=== PATIENT | male | born 1940 | race Caucasian/White ===

== ENCOUNTER 2016-07-30 01:40 | Emergency (ER) | payer MEDICARE, OTHER ==
[~2016-07-30 01:40] MED LIST: ANTIVERT25 MG PO; ASPIRIN ADULT L81 M1; ASPIRIN81 M1 PO; CALCIUM PO; CETIRIZINE HCL10 MG PO; CLARITIN10 MG PO; COZAAR25 MG; COZAAR50 MG PO; GLUCOPHAGE500 MG PO; KLOR-CON 88 ME1 PO; LORATADINE10 M2; LOSARTAN POTASS1 TA1 PO; LOSARTAN POTASS1 TA4 PO; NAPROSYN500 MG PO; NAPROXEN500 M3 PO; NEURONTIN300 MG PO; NOVOLIN 70100 UNITS/ SUBQ; NOVOLOG MIX 70/10 ML SC; NOVOLOG MIX 70/10 ML SUBQ; PROPRANOLOL10 MG; RANITIDINE 150150 MG PO; SIMVASTATIN20 M1; TOPROL-XL200 MG PO; ZOCOR40 MG PO
--- NOTE | 2016-07-30 02:05 | NUR ---
PATIENT LEFT WITHOUT BEING SEEN BY DR. BLISS. NO FURTHER CARE PROVIDED FOR PATIENT.
== END 2016-07-30 02:05 | disposition left against medical advice (07) ==
LOC: MED 01:40
DX: I10 Essential (primary) hypertension (principal); Z53.21 Procedure and treatment not carried out due to patient leaving prior to being seen by health care provider

== ENCOUNTER 2018-11-25 10:04 | Emergency (ER) | payer OTHER, MEDICAID ==
[~2018-11-25] VITALS: Ht 171.4 cm; Wt 101.2 kg
[~2018-11-25 10:04] MED LIST changes: -ANTIVERT25 MG PO; +ASPI-1718 PO; -ASPIRIN ADULT L81 M1; -ASPIRIN81 M1 PO; +CALC-747 PO; -CALCIUM PO; +CETI10TA71 PO; -CETIRIZINE HCL10 MG PO; -CLARITIN10 MG PO; -COZAAR25 MG; -COZAAR50 MG PO; +GABA300C PO; -GLUCOPHAGE500 MG PO; +HYDR-3298 PO; -KLOR-CON 88 ME1 PO; +LORA10TA19 PO; -LORATADINE10 M2; -LOSARTAN POTASS1 TA1 PO; -LOSARTAN POTASS1 TA4 PO; +MECL-305 PO; +METF500T PO; -NAPROSYN500 MG PO; -NAPROXEN500 M3 PO; -NEURONTIN300 MG PO; +NOV7030 SUBQ; -NOVOLIN 70100 UNITS/ SUBQ; -NOVOLOG MIX 70/10 ML SC; -NOVOLOG MIX 70/10 ML SUBQ; +POTA8TER12 PO; -PROPRANOLOL10 MG; +RANI-451 PO; -RANITIDINE 150150 MG PO; +SIMV40TA1 PO; -SIMVASTATIN20 M1; -TOPROL-XL200 MG PO; -ZOCOR40 MG PO
--- NOTE | 2018-11-25 10:15 | NUR ---
PT AMBULATED TO ER BED 03
[2018-11-25 10:19] VITALS: BP 122/52
--- NOTE | 2018-11-25 10:20 | NUR ---
PT PRESENTS TO EMERGENCY DEPARTMENT WITH C/O RIGHT EYE PAIN. REPORTS HAVING CATARACT SURGERY TO BILATERAL EYES APPROX 6 MONTHS AGO. RIGHT EYE NOTED WATERY AND RED. PT STATES PAIN IS 5/10 AT THIS TIME. VSS. ERMD TO EVALUATE PT.
--- NOTE | 2018-11-25 10:40 | NUR ---
DR DOTY EVALUATING PT AT THIS TIME.
[2018-11-25] MEDS ORDERED: TETRACAINE HCL/PF 0.5% OPTH 4 ML BTL OP ONE ×2 (10:50→14:15)
--- NOTE | 2018-11-25 10:50 | NUR ---
VISUAL ACUITY DONE BY MIRLANDE JARVIS.
--- NOTE | 2018-11-25 11:12 | NUR ---
20G TO RIGHT AC STARTED BY JOANN GREENE. PT TOLERATED PROCEDURE WELL.
[2018-11-25 11:20] LABS: BASOPHILS % (AUTO) 0.5 % (0.0-2.0); EOSINOPHILS # (AUTO) 0.3 K/uL (0-0.4); EOSINOPHILS % (AUTO) 4.1 % (0.0-4.0); HEMATOCRIT 36.7 % (36-52); LYMPHOCYTES # (AUTO) 1.6 K/uL (2.0-11.5); LYMPHOCYTES % (AUTO) 19.3 % (20.5-51.1); MEAN CORPUSCULAR HEMOGLOBIN 28 pg (27-31); MEAN CORPUSCULAR HGB CONC 33 g/dL (33-37); MEAN CORPUSCULAR VOLUME 84.7 fL (80-94); MONOCYTES # (AUTO) 0.7 K/uL (0.8-1.0); NEUTROPHILS # (AUTO) 5.6 K/uL (1.8-7.7); NEUTROPHILS % (AUTO) 68.1 % (42.2-75.2); PLATELET COUNT (AUTO) 227 K/uL (140-450); RED BLOOD CELL COUNT(AUTO) 4.33 MIL/uL (4.20-6.10); RED CELL DISTRIBUTION WIDTH 14.9 % (11.6-13.7); WHITE BLOOD COUNT (AUTO) 8.2 K/uL (4.8-10.8)
[2018-11-25 11:28] LABS: ANION GAP 14.4 (8-16); CARBON DIOXIDE 24.6 mmol/L (21-32); CHLORIDE 102 mmol/L (98-107); CREATININE 1.3 mg/dL (0.7-1.3); GLUCOSE 301 mg/dL (74-106); SODIUM SERUM 137 mmol/L (136-145); UREA NITROGEN, BLOOD 25 mg/dL (7-18)
[2018-11-25] MEDS ORDERED: TETRACAINE HCL/PF 0.5% OPTH 4 ML BTL ONE (11:31)
[2018-11-25] MEDS ORDERED: FLUORESCEIN OPTH STRIP 0.6 MG ONE (11:31)
[2018-11-25 11:34] LABS: TOTAL BILIRUBIN 0.3 mg/dL (0.0-1.0)
[2018-11-25 11:49] LABS: ALBUMIN 3.4 g/dL (3.4-5.0); ASPARTATE AMINOTRANSFERASE 17 U/L (15-37)
--- NOTE | 2018-11-25 12:04 | NUR ---
PT TAKEN TO CT VIA WHEELCHAIR BY DAMON KUNZ
--- NOTE | 2018-11-25 12:30 | NUR ---
tetracaine ophthalmic drops administered to right eye as ordered by .
--- NOTE | 2018-11-25 12:31 | NUR ---
Flourescein eye strip to be administered by Dr. Unger.
--- NOTE | 2018-11-25 13:32 | NUR ---
Patient appears to be resting in bed. Vital Signs within normal limits. Respirations even and unlabored.
--- NOTE | 2018-11-25 14:05 | NUR ---
PROVIDED FOOD TRAY; PT EATING AT THIS TIME.
[2018-11-25 14:46] VITALS: BP 126/62
--- NOTE | 2018-11-25 14:46 | NUR ---
IV removed, catheter intact and site benign. Applied folded 4x4 gauze and tape to stop bleeding.
--- NOTE | 2018-11-25 14:47 | NUR ---
Patient discharged with v/s stable. Written and verbal after care instructions given and explained. Patient alert, oriented and verbalized understanding of instructions. Ambulatory with steady gait. All questions addressed prior to discharge. ID band removed. Patient advised to follow up with PMD.
--- NOTE | 2018-11-25 14:50 | NUR ---
ATTEMPTED TO CONTACT PT OR EMERGENCY CONTACT TO INFORM ABOUT CHANGES TO HIS PRESCRIPTION; NO ANSWER; LEFT VOICEMAIL. AWAITING FOR CALL BACK.
--- NOTE | 2018-11-25 14:51 | NUR ---
NEW PRESCRIPTION IN CHART.
== END 2018-11-25 14:47 | disposition home or self-care (01) ==
LOC: MED 10:04
DX: S05.01XA Injury of conjunctiva and corneal abrasion without foreign body, right eye, initial encounter (principal); H05.011 Cellulitis of right orbit; E11.9 Type 2 diabetes mellitus without complications; K21.9 Gastro-esophageal reflux disease without esophagitis; I10 Essential (primary) hypertension; Z88.0 Allergy status to penicillin; Z88.8 Allergy status to other drugs, medicaments and biological substances; Z79.82 Long term (current) use of aspirin; Z79.899 Other long term (current) drug therapy; X58.XXXA Exposure to other specified factors, initial encounter; Y93.89 Activity, other specified; Y92.89 Other specified places as the place of occurrence of the external cause; Y99.8 Other external cause status
CPT/HCPCS: 36415; 70481; 80053; 85025; 99284; Q9967

== ENCOUNTER 2019-06-14 16:11 | Emergency (ER) | payer OTHER, MEDICAID ==
[~2019-06-14] VITALS: Ht 165.1 cm; Wt 95.3 kg
[~2019-06-14 16:11] MED LIST changes: -ASPI-1718 PO; +ASPI-1822 PO; +MECL-231 PO; -MECL-305 PO; -RANI-451 PO; +RANI-553 PO
== END 2019-06-14 17:00 | disposition home or self-care (01) ==
LOC: MED 16:11
DX: S60.212A Contusion of left wrist, initial encounter (principal); E11.9 Type 2 diabetes mellitus without complications; K21.9 Gastro-esophageal reflux disease without esophagitis; I10 Essential (primary) hypertension; Z79.899 Other long term (current) drug therapy; Z79.82 Long term (current) use of aspirin; Z79.84 Long term (current) use of oral hypoglycemic drugs; Z88.1 Allergy status to other antibiotic agents; W18.30XA Fall on same level, unspecified, initial encounter; Y93.89 Activity, other specified; Y92.89 Other specified places as the place of occurrence of the external cause; Y99.8 Other external cause status
CPT/HCPCS: 99282

== ENCOUNTER 2019-10-15 09:46 | Emergency (ER) | payer OTHER, MEDICAID ==
[~2019-10-15] VITALS: Ht 177.8 cm; Wt 95.3 kg
[2019-10-15 10:08] VITALS: BP 112/53
--- NOTE | 2019-10-15 10:17 | NUR ---
Patient ambulated to chair B. RN evaluating patient.
[2019-10-15 10:54] VITALS: BP 112/53
--- NOTE | 2019-10-15 10:54 | NUR ---
RADHA SAW AND ASSESSED PT BEFORE NURSE COULD ASSESS
--- NOTE | 2019-10-15 10:55 | NUR ---
Patient discharged with v/s stable. Written and verbal after care instructions given and explained. Patient alert, oriented and verbalized understanding of instructions. Ambulatory with steady gait. All questions addressed prior to discharge. ID band removed. Patient advised to follow up with PMD. Rx of ACETAMINOPHEN AND BACITRACIN given. Patient educated on indication of medication including possible reaction and side effects. Opportunity to ask questions provided and answered.
== END 2019-10-15 10:55 | disposition home or self-care (01) ==
LOC: MED 09:46
DX: M79.671 Pain in right foot (principal); K21.9 Gastro-esophageal reflux disease without esophagitis; E11.9 Type 2 diabetes mellitus without complications; I10 Essential (primary) hypertension; Z88.0 Allergy status to penicillin; Z88.8 Allergy status to other drugs, medicaments and biological substances; Z79.899 Other long term (current) drug therapy; Z79.82 Long term (current) use of aspirin; Z79.84 Long term (current) use of oral hypoglycemic drugs
CPT/HCPCS: 99282

== ENCOUNTER 2019-11-03 10:24 | Emergency (ER) | payer OTHER, MEDICAID ==
[~2019-11-03] VITALS: Ht 177.8 cm; Wt 91.6 kg
[2019-11-03 10:26] VITALS: BP 120/56
[2019-11-03] MEDS ORDERED: LIDOCAINE MPF 1% 10 MG/ML VIAL INJ STA (11:04)
[2019-11-03 12:19] VITALS: BP 120/56
== END 2019-11-03 12:19 | disposition home or self-care (01) ==
LOC: MED 10:24
DX: L03.011 Cellulitis of right finger (principal); E11.9 Type 2 diabetes mellitus without complications; K21.9 Gastro-esophageal reflux disease without esophagitis; I10 Essential (primary) hypertension; Z90.49 Acquired absence of other specified parts of digestive tract; Z79.82 Long term (current) use of aspirin; Z79.899 Other long term (current) drug therapy; Z88.8 Allergy status to other drugs, medicaments and biological substances; Z88.0 Allergy status to penicillin
CPT/HCPCS: 99283; J2001

== ENCOUNTER 2019-11-26 09:24 | Emergency (ER) | payer OTHER, MEDICAID ==
[~2019-11-26] VITALS: Ht 177.8 cm; Wt 91.2 kg
[2019-11-26 09:27] VITALS: BP 128/55
--- NOTE | 2019-11-26 09:33 | NUR ---
PT AMBULATED TO BED 7, STEADY GAIT.
--- NOTE | 2019-11-26 09:37 | NUR ---
79 Y/M CO FOOT PAIN 10/10, WARMTH, BURNING, AND BRUISING TO MEDIAL ASPECT OF R FOOT X 3 DAY.DENIES INJURY. CAP REFILL < 3 SECONDS. PEDAL PULSE 2+. PMH- HTN, DM, HLD, ASTHMA, GASTRITIS, CARDIAC
--- NOTE | 2019-11-26 09:41 | NUR ---
ERMD AT BEDSIDE.
[2019-11-26] MEDS ORDERED: KETOROLAC 30 MG/ML VIAL IM ONE (09:45)
--- NOTE | 2019-11-26 10:22 | NUR ---
XR AT BEDSIDE.
[2019-11-26 10:49] VITALS: BP 128/55
== END 2019-11-26 10:49 | disposition home or self-care (01) ==
LOC: MED 09:24
DX: S92.511A Displaced fracture of proximal phalanx of right lesser toe(s), initial encounter for closed fracture (principal); E11.40 Type 2 diabetes mellitus with diabetic neuropathy, unspecified; K21.9 Gastro-esophageal reflux disease without esophagitis; I10 Essential (primary) hypertension; Z88.0 Allergy status to penicillin; Z88.8 Allergy status to other drugs, medicaments and biological substances; Z79.4 Long term (current) use of insulin; Z79.899 Other long term (current) drug therapy; Z79.82 Long term (current) use of aspirin; Z90.49 Acquired absence of other specified parts of digestive tract; X58.XXXA Exposure to other specified factors, initial encounter; Y93.89 Activity, other specified; Y92.89 Other specified places as the place of occurrence of the external cause; Y99.8 Other external cause status
CPT/HCPCS: 73630; 96372; 99283; J1885; Q0092

== ENCOUNTER 2020-05-03 19:52 | Emergency (ER) | payer OTHER, MEDICAID ==
[~2020-05-03] VITALS: Ht 177.8 cm; Wt 90.7 kg
[2020-05-03 19:55] VITALS: BP 149/61
[2020-05-03 21:45] VITALS: BP 149/61
== END 2020-05-03 21:45 | disposition home or self-care (01) ==
LOC: MED 19:52
DX: S93.602A Unspecified sprain of left foot, initial encounter (principal); E11.9 Type 2 diabetes mellitus without complications; I10 Essential (primary) hypertension; K21.9 Gastro-esophageal reflux disease without esophagitis; Z88.0 Allergy status to penicillin; Z79.899 Other long term (current) drug therapy; Z88.8 Allergy status to other drugs, medicaments and biological substances; W18.39XA Other fall on same level, initial encounter; Y93.89 Activity, other specified; Y92.89 Other specified places as the place of occurrence of the external cause; Y99.8 Other external cause status
CPT/HCPCS: 73630; 99283

== ENCOUNTER 2020-08-09 09:37 | Emergency (ER) | payer OTHER, MEDICAID ==
[~2020-08-09] VITALS: Ht 177.8 cm; Wt 90.7 kg
[2020-08-09 09:50] VITALS: BP 132/80
--- NOTE | 2020-08-09 10:02 | NUR ---
PATIENT AMBULATED TO BED 5.
[2020-08-09] MEDS ORDERED: KETOROLAC 30 MG/ML VIAL IM ONE (10:35)
[2020-08-09] MEDS ORDERED: ACET-10509 PO ×2 (11:55→12:21)
[2020-08-09] MEDS ORDERED: NAPR-54 PO ×2 (11:55→12:21)
[2020-08-09 12:26] VITALS: BP 155/49
== END 2020-08-09 12:25 | disposition home or self-care (01) ==
LOC: MED 09:37
DX: S16.1XXA Strain of muscle, fascia and tendon at neck level, initial encounter (principal); R51.9 Headache, unspecified; E11.9 Type 2 diabetes mellitus without complications; I10 Essential (primary) hypertension; K21.9 Gastro-esophageal reflux disease without esophagitis; Z88.0 Allergy status to penicillin; Z88.8 Allergy status to other drugs, medicaments and biological substances; X58.XXXA Exposure to other specified factors, initial encounter; Y93.89 Activity, other specified; Y92.89 Other specified places as the place of occurrence of the external cause; Y99.8 Other external cause status
CPT/HCPCS: 96372; 99283; J1885

== ENCOUNTER 2020-08-10 17:50 | Emergency (ER) | payer OTHER, MEDICAID ==
[~2020-08-10] VITALS: Ht 177.8 cm; Wt 90.7 kg
[~2020-08-10 17:50] MED LIST changes: +ACET-10509 PO; +NAPR-54 PO
[2020-08-10 18:37] VITALS: BP 157/77
[2020-08-10] MEDS ORDERED: LIDOCAINE 5% 1 EA PATCH TP SCH (20:20)
[2020-08-10] MEDS ORDERED: IBUPROFEN 600 MG TAB PO ONE (20:20)
[2020-08-10] MEDS ORDERED: ACETAMINOPHEN 325 MG TAB PO ONE (20:20)
--- NOTE | 2020-08-10 20:30 | NUR ---
PATIENT ELOPED FROM FACILITY. DISCHARGE INSTRUCTIONS NOT GIVEN TO PATIENT. NO NURSING INTERVENTION WAS DONE. NOTIFIED.
== END 2020-08-10 20:30 | disposition left against medical advice (07) ==
LOC: MED 17:50
DX: M54.2 Cervicalgia (principal); R51.9 Headache, unspecified; E11.9 Type 2 diabetes mellitus without complications; I10 Essential (primary) hypertension
CPT/HCPCS: 81002; 99281; 99282; 99292

== ENCOUNTER 2020-08-13 12:22 | Emergency (ER) | payer OTHER, MEDICAID ==
[~2020-08-13] VITALS: Ht 177.8 cm; Wt 93.0 kg
[2020-08-13 12:30] VITALS: BP 142/72
--- NOTE | 2020-08-13 12:30 | NUR ---
PT AMBULATED TO BED 3.
--- NOTE | 2020-08-13 12:40 | NUR ---
PT STATES HE WAS SEEN LAST WEEK FOR SAME PAIN AND HAS NOT IMPROVED. C/O LEFT SIDED NECK PAIN RADIATING TO BACK OF HEAD AND LEFT SIDE OF HEAD X1 WEEK HX DM, HTN, HIGH CHOLESTEROL
--- NOTE | 2020-08-13 12:47 | NUR ---
Patient taken to CT via gurney by surgical services tech
--- NOTE | 2020-08-13 12:54 | NUR ---
Patient back from CT
--- NOTE | 2020-08-13 13:18 | NUR ---
Dr. Chu at the bedside evaluating patient.
[2020-08-13] MEDS: ONDANSETRON 4 MG ODT PO ONE (13:29)
[2020-08-13] MEDS: MORPHINE SULFATE 4 MG/ML SYR IM ONE (13:30)
[2020-08-13] MEDS ORDERED: IBUP-2213 PO (13:42)
[2020-08-13] MEDS ORDERED: ONDA8TAB87 PO (13:42)
[2020-08-13] MEDS ORDERED: ACET-8386 PO (13:42)
[2020-08-13 13:55] VITALS: BP 142/72
--- NOTE | 2020-08-13 13:55 | NUR ---
Patient discharged with v/s stable. Written and verbal after care instructions given and explained. Patient alert, oriented and verbalized understanding of instructions. Ambulatory with steady gait. All questions addressed prior to discharge. ID band removed. Patient advised to follow up with PMD. Rx of ibuprofen, hydrocodone-acetaminophen, ondansetron given. Patient educated on indication of medication including possible reaction and side effects. Opportunity to ask questions provided and answered.
== END 2020-08-13 13:55 | disposition home or self-care (01) ==
LOC: MED 12:22
DX: S13.4XXA Sprain of ligaments of cervical spine, initial encounter (principal); E11.9 Type 2 diabetes mellitus without complications; K21.9 Gastro-esophageal reflux disease without esophagitis; I10 Essential (primary) hypertension; Z88.0 Allergy status to penicillin; Z88.8 Allergy status to other drugs, medicaments and biological substances; Z90.49 Acquired absence of other specified parts of digestive tract; Z79.84 Long term (current) use of oral hypoglycemic drugs; Z79.899 Other long term (current) drug therapy; Z79.82 Long term (current) use of aspirin; X58.XXXA Exposure to other specified factors, initial encounter; Y93.89 Activity, other specified; Y92.89 Other specified places as the place of occurrence of the external cause; Y99.8 Other external cause status
CPT/HCPCS: 70450; 96372; 99284; J2270; Q0162

== ENCOUNTER 2021-01-28 11:07 | Emergency (ER) | payer OTHER, MEDICAID ==
[~2021-01-28] VITALS: Ht 175.3 cm; Wt 93.0 kg
[~2021-01-28 11:07] MED LIST changes: +ACET-8386 PO; +IBUP-2213 PO; +ONDA8TAB87 PO; +POTA8TAB17 PO; -POTA8TER12 PO
[2021-01-28 11:34] VITALS: BP 145/68
--- NOTE | 2021-01-28 11:40 | NUR ---
Patient ambulated to bed 04 with steady/even gait.
--- NOTE | 2021-01-28 11:49 | NUR ---
80 Y/O M BIB SELF FROM HOME, C/O ABD PAIN FOR 1 MO WITH DECREASED APPETITIE. PT STATES WHEN HE EATS, HIS NAUSEA WORSENS. ALSO C/O HEADACHE. 5/10 ABD PAIN. NO VOMITING, PT STATES "MY STOMACH FILLS UP WITH AIR." DENIES CP, SOB, CHILLS, AND FEVER. PMH: DM2, GASTRITIS ALLERGY: PENICILLIN, TETANUS MED: MESCALINE (NO RELIEF) Addendum: 01/28/21 at 1211 by [facility] Pt states 08/11, burning/constant, non-radiating pain that worsens after eating and having caffeine. Patient states taking prescribed Meclizine with temporary relief. States last BM: today, normal. Abd round/soft/distended.
--- NOTE | 2021-01-28 12:11 | NUR ---
Dr. Metz is evaluating patient at bedside
[2021-01-28 12:20] LABS: BASOPHILS % (AUTO) 0.4 % (0.0-2.0); EOSINOPHILS # (AUTO) 0.3 K/uL (0-0.4); HEMOGLOBIN 13.2 g/dL (12.0-18.0); LYMPHOCYTES # (AUTO) 1.7 K/uL (2.0-11.5); LYMPHOCYTES % (AUTO) 20.3 % (20.5-51.1); MEAN CORPUSCULAR HEMOGLOBIN 28 pg (27-31); MEAN CORPUSCULAR HGB CONC 33 g/dL (33-37); MEAN CORPUSCULAR VOLUME 85.9 fL (80-94); MONOCYTES # (AUTO) 0.7 K/uL (0.8-1.0); MONOCYTES % (AUTO) 7.9 % (1.7-9.3); NEUTROPHILS # (AUTO) 5.8 K/uL (1.8-7.7); NEUTROPHILS % (AUTO) 68.4 % (42.2-75.2); PLATELET COUNT (AUTO) 330 K/uL (140-450); RED BLOOD CELL COUNT(AUTO) 4.65 MIL/uL (4.20-6.10); RED CELL DISTRIBUTION WIDTH 14.3 % (11.6-13.7); WHITE BLOOD COUNT (AUTO) 8.5 K/uL (4.8-10.8)
--- NOTE | 2021-01-28 12:21 | NUR ---
Patient transported to CT by syed
[2021-01-28 12:22] LABS: APPEARANCE,URINE CLEAR (CLEAR); BILIRUBIN,URINE NEGATIVE (NEGATIVE); BLOOD, URINE NEGATIVE (NEGATIVE); COLOR,URINE YELLOW (YELLOW); LEUKOCYTE ESTERASE ,URINE NEGATIVE (NEGATIVE); NITRITE, URINE NEGATIVE (NEGATIVE); UGLUCOSE 3+ (NEGATIVE)
[2021-01-28 12:34] LABS: ALBUMIN 3.6 g/dL (3.4-5.0); ANION GAP 11.4 (8-16); ASPARTATE AMINOTRANSFERASE 22 U/L (15-37); CARBON DIOXIDE 27.6 mmol/L (21-32); CHLORIDE 100 mmol/L (98-107); CREATININE 1.3 mg/dL (0.6-1.3); GLUCOSE 394 mg/dL (74-106); LIPASE 149 U/L (73-393); SODIUM SERUM 135 mmol/L (136-145); TOTAL BILIRUBIN 0.3 mg/dL (0.0-1.0); UREA NITROGEN, BLOOD 19 mg/dL (7-18)
--- NOTE | 2021-01-28 12:34 | NUR ---
PT RETURNED FROM CT BY FRANCISCA AND PLACED BACK ONTO INSOLE AND OUTSOLE SPLITTER.
[2021-01-28 12:38] LABS: RBC,URINE 0-5 /HPF (0-5); WBC,URINE 0-5 /HPF (0-5)
--- NOTE | 2021-01-28 13:29 | NUR ---
Dr. Metz is reevaluating patient at bedside
[2021-01-28 13:40] VITALS: BP_SYST 135
[2021-01-28] MEDS ORDERED: MIRABULK PO (13:42)
[2021-01-28] MEDS ORDERED: ONDA-188 PO (13:42)
[2021-01-28 13:58] VITALS: BP_DIAS 73
--- NOTE | 2021-01-28 13:58 | NUR ---
Patient discharged with v/s stable. Written and verbal after care instructions given and explained. Patient alert, oriented and verbalized understanding of instructions. Ambulatory with steady gait. All questions addressed prior to discharge. ID band removed. Patient advised to follow up with PMD. Rx of Miralax, Zofran given. Patient educated on indication of medication including possible reaction and side effects. Opportunity to ask questions provided and answered.
== END 2021-01-28 13:30 | disposition home or self-care (01) ==
LOC: MED 11:07
DX: K59.00 Constipation, unspecified (principal); R11.0 Nausea; E11.9 Type 2 diabetes mellitus without complications; I10 Essential (primary) hypertension; Z79.4 Long term (current) use of insulin; Z79.82 Long term (current) use of aspirin; Z79.899 Other long term (current) drug therapy; Z90.49 Acquired absence of other specified parts of digestive tract; Z88.0 Allergy status to penicillin; Z88.1 Allergy status to other antibiotic agents
CPT/HCPCS: 36415; 80053; 81001; 83690; 84484; 85025; 99284

== ENCOUNTER 2021-05-05 10:29 | Emergency (ER) | payer BC, MEDICAID ==
[~2021-05-05] VITALS: Ht 168.9 cm; Wt 96.7 kg
[~2021-05-05 10:29] MED LIST changes: +MIRABULK PO; +ONDA-188 PO
[2021-05-05 10:32] VITALS: BP 155/79
--- NOTE | 2021-05-05 10:41 | NUR ---
Adolfo elena in [facility] - 05/05/21 at 1044 by [email or web address] pt amb to bed 6.
--- NOTE | 2021-05-05 10:47 | NUR ---
DR. PARK AT PT BEDSIDE FOR FURTHER EVALUATION.
--- NOTE | 2021-05-05 10:56 | NUR ---
81 Y/O MALE CO DYSURIA, LOWER ABD PAIN 5/10 WITH URINATION X1 WEEK. PT ALSO C/O CHRONIC BACK PAIN 6/10 CHRONIC PAIN. DENIES HEMATURIA, DENIES DISCHARGE, DENIES FEVER/CHILLS. DENIES N/V. PMH: DM, BPH, HTN, HLD, ASTHMA, RA ALLERGIES: PCN, TETANUS TOXOID
[2021-05-05] MEDS ORDERED: MIRABULK PO (10:57)
[2021-05-05] MEDS ORDERED: TAMS0.4C96 PO (10:57)
[2021-05-05 11:34] VITALS: BP 155/79
--- NOTE | 2021-05-05 11:34 | NUR ---
Patient discharged with v/s stable. Written and verbal after care instructions given FOR BPH and explained. Patient alert, oriented and verbalized understanding of instructions. Ambulatory with steady gait. All questions addressed prior to discharge. ID band removed. Patient advised to follow up with PMD. Rx of MIRALAX, FLOMAX given. Patient educated on indication of medication including possible reaction and side effects. Opportunity to ask questions provided and answered.
[2021-05-05 11:53] LABS: APPEARANCE,URINE HAZY (CLEAR); BILIRUBIN,URINE NEGATIVE (NEGATIVE); BLOOD, URINE NEGATIVE (NEGATIVE); COLOR,URINE YELLOW (YELLOW); LEUKOCYTE ESTERASE ,URINE NEGATIVE (NEGATIVE); NITRITE, URINE NEGATIVE (NEGATIVE); UGLUCOSE NEGATIVE (NEGATIVE)
== END 2021-05-05 11:34 | disposition home or self-care (01) ==
LOC: MED 10:29
DX: N40.1 Benign prostatic hyperplasia with lower urinary tract symptoms (principal); K59.00 Constipation, unspecified; E11.9 Type 2 diabetes mellitus without complications; J45.909 Unspecified asthma, uncomplicated; I10 Essential (primary) hypertension; Z88.0 Allergy status to penicillin; Z88.8 Allergy status to other drugs, medicaments and biological substances
CPT/HCPCS: 81003; 87086; 99283

== ENCOUNTER 2021-06-16 09:20 | Emergency (ER) | payer OTHER, MEDICAID ==
[~2021-06-16] VITALS: Ht 170.2 cm; Wt 96.8 kg
[~2021-06-16 09:20] MED LIST changes: +TAMS0.4C96 PO
[2021-06-16 09:29] VITALS: BP 145/72
--- NOTE | 2021-06-16 09:34 | NUR ---
PT AMB TO BED 12.
--- NOTE | 2021-06-16 10:02 | NUR ---
Patient being evaluated by DR PARK at bedside.
--- NOTE | 2021-06-16 10:08 | NUR ---
PATIENT PRESENTS TO ED WITH PAIN DURING URINATION AND LOWER ABD PAIN 5/10 WITH NAUSEA. PT STATES HE HAS AN APPOINTMENT WITH A UROLOGIST IN SEPTEMBER. DENIES V/D; SKIN IS PINK/WARM/DRY; AAOX4 WITH EVEN AND STEADY GAIT; PT DENIES ANY FEVER. PATIENT; VSS; PATIENT POSITIONED FOR COMFORT; HOB ELEVATED; BEDRAILS UP X2; BED DOWN. ER MD MADE AWARE OF PT STATUS. HX: ASTHMA,HTN, DIABETES, GURD ALLERGY: PCN, TETANUS
[2021-06-16 10:58] LABS: APPEARANCE,URINE CLEAR (CLEAR); BILIRUBIN,URINE NEGATIVE (NEGATIVE); BLOOD, URINE NEGATIVE (NEGATIVE); COLOR,URINE YELLOW (YELLOW); LEUKOCYTE ESTERASE ,URINE NEGATIVE (NEGATIVE); NITRITE, URINE NEGATIVE (NEGATIVE); UGLUCOSE TRACE (NEGATIVE)
[2021-06-16 11:30] VITALS: BP 145/72
--- NOTE | 2021-06-16 11:30 | NUR ---
Patient discharged with v/s stable. Written and verbal after care instructions given and explained. Patient verbalized understanding. Ambulatory with steady gait. All questions addressed prior to discharge. Advised to follow up with PMD & UROLOGIST.
== END 2021-06-16 11:30 | disposition home or self-care (01) ==
LOC: MED 09:20
DX: N40.1 Benign prostatic hyperplasia with lower urinary tract symptoms (principal); R35.1 Nocturia; J45.909 Unspecified asthma, uncomplicated; E11.9 Type 2 diabetes mellitus without complications; K21.9 Gastro-esophageal reflux disease without esophagitis; I11.9 Hypertensive heart disease without heart failure; Z88.0 Allergy status to penicillin
CPT/HCPCS: 36415; 81003; 84153; 99283

== ENCOUNTER 2021-09-16 12:12 | Emergency (ER) | payer OTHER, MEDICAID ==
[~2021-09-16] VITALS: Ht 170.2 cm; Wt 93.6 kg
[~2021-09-16 12:12] MED LIST changes: +METF-346 PO; -METF500T PO
[2021-09-16 12:31] VITALS: BP 137/66
--- NOTE | 2021-09-16 12:35 | NUR ---
PT AMB TO BED 11.
--- NOTE | 2021-09-16 12:40 | NUR ---
81 Y/O MALE BIB SELF C/O FEET PAIN, HEADACHE. BLOOD SUGAR 362 AT THIS TIME. PT DENIES FEVER OR CHILLS. PT DENIES CHEST PAIN, SOB. PMH:ASTHMA, DM, HTN,GERD, BPH
[2021-09-16] MEDS ORDERED: NACL 0.9% 1,000 ML IV ONE (13:00)
[2021-09-16] MEDS ORDERED: KETOROLAC 15 MG/ML VIAL IVP ONE (13:20)
[2021-09-16 13:24] LABS: BASOPHILS % (AUTO) 0.2 % (0.0-2.0); EOSINOPHILS # (AUTO) 0.3 K/uL (0-0.4); EOSINOPHILS % (AUTO) 3.3 % (0.0-4.0); HEMATOCRIT 38.2 % (36-52); HEMOGLOBIN 12.6 g/dL (12.0-18.0); LYMPHOCYTES # (AUTO) 1.9 K/uL (2.0-11.5); LYMPHOCYTES % (AUTO) 23.8 % (20.5-51.1); MEAN CORPUSCULAR HEMOGLOBIN 29 pg (27-31); MEAN CORPUSCULAR HGB CONC 33 g/dL (33-37); MEAN CORPUSCULAR VOLUME 86.5 fL (80-94); MONOCYTES # (AUTO) 0.6 K/uL (0.8-1.0); MONOCYTES % (AUTO) 7.8 % (1.7-9.3); NEUTROPHILS # (AUTO) 5.3 K/uL (1.8-7.7); NEUTROPHILS % (AUTO) 64.9 % (42.2-75.2); PLATELET COUNT (AUTO) 266 K/uL (140-450); RED BLOOD CELL COUNT(AUTO) 4.41 MIL/uL (4.20-6.10); RED CELL DISTRIBUTION WIDTH 14.1 % (11.6-13.7); WHITE BLOOD COUNT (AUTO) 8.2 K/uL (4.8-10.8)
[2021-09-16 13:44] LABS: CARBON DIOXIDE 28.4 mmol/L (21-32); CHLORIDE 101 mmol/L (98-107); CREATININE 1.3 mg/dL (0.6-1.3); GLUCOSE 335 mg/dL (74-106); POTASSIUM 4.4 mmol/L (3.5-5.1); SODIUM SERUM 134 mmol/L (136-145); UREA NITROGEN, BLOOD 19 mg/dL (7-18)
[2021-09-16] MEDS ORDERED: IBUP-2213 PO (13:56)
[2021-09-16] MEDS ORDERED: CLOT1CRE83 TP (13:56)
[2021-09-16] MEDS ORDERED: GABA300C PO (13:56)
--- NOTE | 2021-09-16 14:16 | NUR ---
Patient discharged with v/s stable. Written and verbal after care instructions given and explained. Patient alert, oriented and verbalized understanding of instructions. Ambulatory with steady gait. All questions addressed prior to discharge. ID band removed. Patient advised to follow up with PMD. Rx of CLOTRIMAZOLE, GABAPENTIN, IBUPROFEN given. Opportunity to ask questions provided and answered.
--- NOTE | 2021-09-16 14:17 | NUR ---
The patient's care was reviewed and supervised by Vania Cueva RN.
== END 2021-09-16 14:16 | disposition home or self-care (01) ==
LOC: MED 12:12
DX: E11.42 Type 2 diabetes mellitus with diabetic polyneuropathy (principal); B35.3 Tinea pedis; J45.909 Unspecified asthma, uncomplicated; I10 Essential (primary) hypertension; K21.9 Gastro-esophageal reflux disease without esophagitis; Z79.899 Other long term (current) drug therapy; Z79.1 Long term (current) use of non-steroidal anti-inflammatories (NSAID); Z79.891 Long term (current) use of opiate analgesic; Z79.82 Long term (current) use of aspirin; Z88.0 Allergy status to penicillin; Z88.7 Allergy status to serum and vaccine
CPT/HCPCS: 36415; 80048; 81002; 82948; 85025; 96361; 96374; 99283; J1885; J7030

== ENCOUNTER 2021-10-14 08:42 | Emergency (ER) | payer OTHER, MEDICAID ==
[~2021-10-14] VITALS: Ht 167.6 cm; Wt 93.4 kg
[~2021-10-14 08:42] MED LIST changes: +CLOT1CRE83 TP
[2021-10-14 08:49] VITALS: BP 156/75
--- NOTE | 2021-10-14 09:00 | NUR ---
81 Y/O MALE C/O FO BILATERAL FOOT PAIN X 2DAYS STATES THAT THE PAIN IS BURNING ALLERGY: PCN, TETANUS, ADSORBED PMH: HTN, DM
--- NOTE | 2021-10-14 09:10 | NUR ---
DR SULLIVAN BESIDE PT FOR EVAL
[2021-10-14] MEDS ORDERED: TRAM50TA1 PO (09:24)
[2021-10-14] MEDS ORDERED: ALBU0.0912 IH (09:38)
[2021-10-14] MEDS ORDERED: MONT10TA35 PO (09:38)
[2021-10-14 09:40] VITALS: BP 135/74
--- NOTE | 2021-10-14 09:41 | NUR ---
Patient discharged with v/s stable. Written and verbal after care instructions given and explained. Patient alert, oriented and verbalized understanding of instructions. Ambulatory with steady gait. All questions addressed prior to discharge. ID band removed. Patient advised to follow up with PMD. Rx of ALBUTEROL, TRAMADOL, MONTELUKAST given. Patient educated on indication of medication including possible reaction and side effects. Opportunity to ask questions provided and answered.
== END 2021-10-14 09:41 | disposition home or self-care (01) ==
LOC: MED 08:42
DX: E11.40 Type 2 diabetes mellitus with diabetic neuropathy, unspecified (principal); M79.671 Pain in right foot; M79.672 Pain in left foot; J45.909 Unspecified asthma, uncomplicated; I10 Essential (primary) hypertension; K21.9 Gastro-esophageal reflux disease without esophagitis; Z88.0 Allergy status to penicillin; Z88.8 Allergy status to other drugs, medicaments and biological substances; Z79.899 Other long term (current) drug therapy; Z79.4 Long term (current) use of insulin; Z79.82 Long term (current) use of aspirin
CPT/HCPCS: 99283

== ENCOUNTER 2021-10-20 17:26 | Emergency (ER) | payer OTHER, MEDICAID ==
[~2021-10-20] VITALS: Ht 167.6 cm; Wt 93.2 kg
[~2021-10-20 17:26] MED LIST changes: +ALBU0.0912 IH; +MONT10TA35 PO; +TRAM50TA1 PO
[2021-10-20 17:51] VITALS: BP 130/66
[2021-10-20] MEDS ORDERED: CLOT1CRE83 TP (19:00)
[2021-10-20 19:25] VITALS: BP 130/66
--- NOTE | 2021-10-20 19:25 | NUR ---
Patient discharged with v/s stable. Written and verbal after care instructions given and explained. Patient alert, oriented and verbalized understanding of instructions. Ambulatory with steady gait. All questions addressed prior to discharge. ID band removed. Patient advised to follow up with PMD. Rx of CLOTRIMAZOLE given. Patient educated on indication of medication including possible reaction and side effects. Opportunity to ask questions provided and answered.
== END 2021-10-20 19:25 | disposition home or self-care (01) ==
LOC: MED 17:26
DX: B35.3 Tinea pedis (principal); I10 Essential (primary) hypertension; J45.909 Unspecified asthma, uncomplicated; I25.10 Atherosclerotic heart disease of native coronary artery without angina pectoris; K21.9 Gastro-esophageal reflux disease without esophagitis; E11.9 Type 2 diabetes mellitus without complications; Z79.4 Long term (current) use of insulin; Z79.899 Other long term (current) drug therapy; Z88.0 Allergy status to penicillin; Z88.8 Allergy status to other drugs, medicaments and biological substances
CPT/HCPCS: 93005; 99283

== ENCOUNTER 2022-02-01 09:01 | Emergency (ER) | payer OTHER, MEDICAID ==
[~2022-02-01] VITALS: Ht 177.8 cm; Wt 98.9 kg
[2022-02-01 09:29] VITALS: BP 137/73
[2022-02-01] MEDS ORDERED: KETOROLAC 60 MG/2 ML VIAL IM ONE (11:15)
[2022-02-01] MEDS ORDERED: ACET-8386 PO (11:34)
[2022-02-01 11:43] VITALS: BP 151/71
--- NOTE | 2022-02-01 11:43 | NUR ---
Patient discharged with v/s stable. Written and verbal after care instructions FOR FOOT CONTUSION given and explained. Patient alert, oriented and verbalized understanding of instructions. Ambulatory with steady gait. All questions addressed prior to discharge. ID band removed. Patient advised to follow up with PMD. Rx of HYDROCODONE given. Opportunity to ask questions provided and answered.
== END 2022-02-01 11:43 | disposition home or self-care (01) ==
LOC: MED 09:01
DX: S90.31XA Contusion of right foot, initial encounter (principal); I10 Essential (primary) hypertension; E11.9 Type 2 diabetes mellitus without complications; K21.9 Gastro-esophageal reflux disease without esophagitis; I25.10 Atherosclerotic heart disease of native coronary artery without angina pectoris; Z79.4 Long term (current) use of insulin; Z79.899 Other long term (current) drug therapy; Z88.0 Allergy status to penicillin; Z88.8 Allergy status to other drugs, medicaments and biological substances; Z90.49 Acquired absence of other specified parts of digestive tract; X58.XXXA Exposure to other specified factors, initial encounter; Y93.89 Activity, other specified; Y92.89 Other specified places as the place of occurrence of the external cause; Y99.8 Other external cause status
CPT/HCPCS: 73630; 96372; 99283; J1885

== ENCOUNTER 2022-05-06 17:01 | Emergency (ER) | payer OTHER ==
[~2022-05-06] VITALS: Ht 170.2 cm; Wt 91.2 kg
[~2022-05-06 17:01] MED LIST changes: -ACET-8386 PO; +ACET-8905 PO; +TRAM-748 PO; -TRAM50TA1 PO
[2022-05-06 17:43] VITALS: BP 177/70
[2022-05-06] MEDS ORDERED: guaiFENesin DM SUGAR FREE 100 MG/5 ML UDBTL PO PRN (18:15)
[2022-05-06 18:31] LABS: BASOPHILS % (AUTO) 0.5 % (0.0-2.0); EOSINOPHILS # (AUTO) 0.1 K/uL (0-0.4); EOSINOPHILS % (AUTO) 0.8 % (0.0-4.0); HEMATOCRIT 35.9 % (36-52); HEMOGLOBIN 12.2 g/dL (12.0-18.0); LYMPHOCYTES # (AUTO) 1.6 K/uL (2.0-11.5); MEAN CORPUSCULAR HEMOGLOBIN 30 pg (27-31); MEAN CORPUSCULAR HGB CONC 34 g/dL (33-37); MEAN CORPUSCULAR VOLUME 87.3 fL (80-94); MONOCYTES # (AUTO) 0.9 K/uL (0.8-1.0); MONOCYTES % (AUTO) 12.8 % (1.7-9.3); NEUTROPHILS # (AUTO) 4.6 K/uL (1.8-7.7); NEUTROPHILS % (AUTO) 63.9 % (42.2-75.2); PLATELET COUNT (AUTO) 241 K/uL (140-450); RED BLOOD CELL COUNT(AUTO) 4.11 MIL/uL (4.20-6.10); RED CELL DISTRIBUTION WIDTH 13.3 % (11.6-13.7); WHITE BLOOD COUNT (AUTO) 7.2 K/uL (4.8-10.8)
[2022-05-06] MEDS: KETOROLAC 30 MG/ML VIAL IVP ONE (18:39)
[2022-05-06] MEDS: DEXAMETHASONE 10 MG/ML VIAL IVP ONE (18:39)
[2022-05-06] MEDS: ACETAMINOPHEN EXTRA STRENGTH 500 MG TAB PO ONE (18:40)
--- NOTE | 2022-05-06 18:42 | NUR ---
PT C/O COUGH CONGESTION SOB X3 DAYS, REPORTS TAKING A HOME COVID TEST WITH +RESULTS. NSR ON MONITOR. 94% ON RA IN [facility]. IV INSERTED TO RIGHT HAND #[id number]. MEDICATED PER ORDER. SWABS SENT TO LAB.
[2022-05-06 18:48] LABS: C-REACTIVE PROTEIN QUANT 2.8 mg/dL (0.0-0.9)
[2022-05-06 18:53] LABS: PROTHROMBIN TIME 10.8 secs (10.8-13.4)
[2022-05-06 18:54] LABS: ALBUMIN 3.9 g/dL (3.4-5.0); ANION GAP 13.4 (8-16); ASPARTATE AMINOTRANSFERASE 24 U/L (15-37); CARBON DIOXIDE 27.5 mmol/L (21-32); CHLORIDE 95 mmol/L (98-107); CREATININE 1.4 mg/dL (0.6-1.3); GLUCOSE 189 mg/dL (74-106); POTASSIUM 3.9 mmol/L (3.5-5.1); SODIUM SERUM 132 mmol/L (136-145); TOTAL BILIRUBIN 0.3 mg/dL (0.0-1.0); UREA NITROGEN, BLOOD 28 mg/dL (7-18)
[2022-05-06] MEDS ORDERED: AZITHROMYCIN 500 MG in DEXTROSE 5% 250 ML IV ONE (18:55)
[2022-05-06 18:56] LABS: LACTATE DEHYDROGENASE 205 U/L (85-227)
[2022-05-06] MEDS ORDERED: AZITHROMYCIN 500 MG INJ VIAL IV ONE (19:24)
--- NOTE | 2022-05-06 19:30 | NUR ---
PT STATES HE WOULD LIKE TO LEAVE AMA HE NEEDS TO TAKE CARE OF HIS FAMILY. DR. GRIDER NOTIFIED. PT AWARE OF RISKS OF LEAVING AMA
[2022-05-06] MEDS ORDERED: NACL 0.9% 1,000 ML IV ONE (19:35)
--- NOTE | 2022-05-06 19:57 | NUR ---
PT SIGNED AMA FORM, PLACED IN CHART
[2022-05-07] MEDS ORDERED: ACET-2619 PO (10:23)
[2022-05-07] MEDS ORDERED: NIRM1TAB5 PO (10:23)
== END 2022-05-06 19:55 | disposition left against medical advice (07) ==
LOC: MED 17:01
DX: U07.1 COVID-19 (principal); J12.82 Pneumonia due to coronavirus disease 2019; E87.1 Hypo-osmolality and hyponatremia; E11.9 Type 2 diabetes mellitus without complications; I10 Essential (primary) hypertension; Z79.899 Other long term (current) drug therapy; Z79.1 Long term (current) use of non-steroidal anti-inflammatories (NSAID); Z79.891 Long term (current) use of opiate analgesic; Z88.0 Allergy status to penicillin; Z88.7 Allergy status to serum and vaccine
CPT/HCPCS: 36415; 71045; 80053; 82550; 83605; 83615; 83880; 84484; 85025; 85379; 85384; 85610; 85730; 86140; 93005; 96374; 96375; 99285; J0456; J1100; J1885; Q0092

== ENCOUNTER 2022-05-07 08:02 | Emergency (ER) | payer OTHER ==
[~2022-05-07] VITALS: Ht 177.8 cm; Wt 90.7 kg
[2022-05-07 08:13] VITALS: BP 134/54
--- NOTE | 2022-05-07 08:17 | NUR ---
82/M WALKED IN C/O COUGH AND HEADACHE. PT WAS SEEN YESTERDAY FOR SAME S/SX BUT LEFT AMA. PT REPORTS TESTING COVID AT HOME 3 DAYS AGO. AFEBRILE, ON ROOM AIR.
[2022-05-07] MEDS ORDERED: ACET-2619 PO (10:23)
[2022-05-07] MEDS ORDERED: NIRM1TAB5 PO (10:23)
== END 2022-05-07 10:25 | disposition home or self-care (01) ==
LOC: MED 08:02
DX: U07.1 COVID-19 (principal); N28.9 Disorder of kidney and ureter, unspecified; I10 Essential (primary) hypertension; I25.10 Atherosclerotic heart disease of native coronary artery without angina pectoris; E11.9 Type 2 diabetes mellitus without complications; Z79.4 Long term (current) use of insulin; Z79.899 Other long term (current) drug therapy; Z88.0 Allergy status to penicillin
CPT/HCPCS: 99283

== ENCOUNTER 2022-05-09 11:23 | Emergency (ER) | payer OTHER ==
[~2022-05-09] VITALS: Ht 170.2 cm; Wt 91.2 kg
[~2022-05-09 11:23] MED LIST changes: +ACET-2619 PO; +NIRM1TAB5 PO
[2022-05-09 11:42] VITALS: BP 137/61
--- NOTE | 2022-05-09 12:30 | NUR ---
82 y/o male bib self, c/o upper back pain that worsened. 4/10 pain that comes and goes. pt states he has been here the past 2 days for same c/o and was told by md to come back if pain worsened. pmh: htn, dm2, allergy: penicillin, tdap
[2022-05-09] MEDS ORDERED: ACETAMINOPHEN EXTRA STRENGTH 500 MG TAB PO ONE (15:20)
[2022-05-09 15:22] LABS: BASOPHILS % (AUTO) 0.6 % (0.0-2.0); EOSINOPHILS # (AUTO) 0.1 K/uL (0-0.4); HEMATOCRIT 37.5 % (36-52); HEMOGLOBIN 12.4 g/dL (12.0-18.0); LYMPHOCYTES # (AUTO) 1.8 K/uL (2.0-11.5); LYMPHOCYTES % (AUTO) 31.9 % (20.5-51.1); MEAN CORPUSCULAR HEMOGLOBIN 29 pg (27-31); MEAN CORPUSCULAR HGB CONC 33 g/dL (33-37); MEAN CORPUSCULAR VOLUME 87.9 fL (80-94); MONOCYTES # (AUTO) 0.6 K/uL (0.8-1.0); MONOCYTES % (AUTO) 9.8 % (1.7-9.3); NEUTROPHILS # (AUTO) 3.2 K/uL (1.8-7.7); NEUTROPHILS % (AUTO) 56.7 % (42.2-75.2); PLATELET COUNT (AUTO) 274 K/uL (140-450); RED BLOOD CELL COUNT(AUTO) 4.27 MIL/uL (4.20-6.10); RED CELL DISTRIBUTION WIDTH 13.1 % (11.6-13.7); WHITE BLOOD COUNT (AUTO) 5.7 K/uL (4.8-10.8)
[2022-05-09 15:42] LABS: ANION GAP 16.4 (8-16); ASPARTATE AMINOTRANSFERASE 20 U/L (15-37); CARBON DIOXIDE 26.7 mmol/L (21-32); CHLORIDE 98 mmol/L (98-107); CREATININE 1.1 mg/dL (0.6-1.3); GLUCOSE 239 mg/dL (74-106); POTASSIUM 4.1 mmol/L (3.5-5.1); SODIUM SERUM 137 mmol/L (136-145); TOTAL BILIRUBIN 0.4 mg/dL (0.0-1.0); UREA NITROGEN, BLOOD 26 mg/dL (7-18)
[2022-05-09] MEDS ORDERED: NAPR-1704 PO (16:04)
--- NOTE | 2022-05-09 16:39 | NUR ---
pt refusing ct at this time per district manager. [id number] intrepreter
[2022-05-09 18:09] LABS: APPEARANCE,URINE CLEAR (CLEAR); BILIRUBIN,URINE NEGATIVE (NEGATIVE); BLOOD, URINE NEGATIVE (NEGATIVE); COLOR,URINE YELLOW (YELLOW); LEUKOCYTE ESTERASE ,URINE NEGATIVE (NEGATIVE); NITRITE, URINE NEGATIVE (NEGATIVE); UGLUCOSE NEGATIVE (NEGATIVE)
[2022-05-09 18:34] VITALS: BP 137/61
== END 2022-05-09 18:34 | disposition home or self-care (01) ==
LOC: MED 11:23
DX: U07.1 COVID-19 (principal); R05.9 Cough, unspecified; I25.10 Atherosclerotic heart disease of native coronary artery without angina pectoris; E11.9 Type 2 diabetes mellitus without complications; I10 Essential (primary) hypertension; Z79.4 Long term (current) use of insulin; Z79.899 Other long term (current) drug therapy; Z88.0 Allergy status to penicillin; Z88.8 Allergy status to other drugs, medicaments and biological substances
CPT/HCPCS: 36415; 71046; 71275; 80053; 81003; 83605; 85025; 99285; Q9967

== ENCOUNTER 2022-06-01 10:16 | Emergency (ER) | payer OTHER ==
[~2022-06-01] VITALS: Ht 167.6 cm; Wt 88.9 kg
[~2022-06-01 10:16] MED LIST changes: +MONT-72 PO; -MONT10TA35 PO; +NAPR-1704 PO; +SIMV-373 PO; -SIMV40TA1 PO
[2022-06-01 10:19] VITALS: BP 156/67
--- NOTE | 2022-06-01 10:37 | NUR ---
ASSUMED PATIENT CARE, NURSING ASSESSMENT COMPLETED.
[2022-06-01] MEDS ORDERED: NAPR-1704 PO (12:07)
[2022-06-01] MEDS ORDERED: VALA1TAB40 PO (12:07)
--- NOTE | 2022-06-01 12:22 | NUR ---
DISPO AND MEDICAL DECISION MAKING, DC HOME WITH AFTERCARE INSTRUCTIONS AND E-RX. ALL INSTRUCTIONS UNDERSTOOD BY PATIENT WELL. DC HOME AMBULATORY, VS WNL.
[2022-06-01 12:24] VITALS: BP 144/59
== END 2022-06-01 12:22 | disposition home or self-care (01) ==
LOC: MED 10:16
DX: B02.8 Zoster with other complications (principal); I10 Essential (primary) hypertension; E11.9 Type 2 diabetes mellitus without complications; I25.10 Atherosclerotic heart disease of native coronary artery without angina pectoris; Z88.0 Allergy status to penicillin; Z88.8 Allergy status to other drugs, medicaments and biological substances; Z79.899 Other long term (current) drug therapy; Z90.49 Acquired absence of other specified parts of digestive tract
CPT/HCPCS: 99281; 99282; 99283

== ENCOUNTER 2023-09-07 23:11 | Emergency (ER) | payer MEDICARE, OTHER ==
[~2023-09-07] VITALS: Ht 172.7 cm; Wt 84.8 kg
[~2023-09-07 23:11] MED LIST changes: +NAPR-337 PO; -NAPR-54 PO; +VALA1TAB40 PO
[2023-09-07 23:27] VITALS: BP 123/39; PULSE 58; RESP 20; TEMP 98.1; O2SAT 99
[2023-09-07 23:42] VITALS: TEMP 98.1
[2023-09-07] MEDS: GABAPENTIN 300 MG CAP PO ONE (23:56)
[2023-09-07] MEDS: ACETAMINOPHEN EXTRA STRENGTH 500 MG TAB PO ONE (23:56)
[2023-09-08] MEDS ORDERED: GABA300C PO (01:08)
[2023-09-08 01:20] VITALS: BP 121/56; PULSE 60; RESP 18; O2SAT 95
== END 2023-09-08 01:20 | disposition home or self-care (01) ==
LOC: MED 23:11
DX: E11.42 Type 2 diabetes mellitus with diabetic polyneuropathy (principal); I11.9 Hypertensive heart disease without heart failure; Z88.0 Allergy status to penicillin; Z79.4 Long term (current) use of insulin; Z79.899 Other long term (current) drug therapy
CPT/HCPCS: 99283

== ENCOUNTER 2023-09-17 09:15 | Emergency (ER) | payer MEDICARE, OTHER ==
[~2023-09-17] VITALS: Ht 177.8 cm; Wt 83.0 kg
[2023-09-17 09:44] VITALS: BP 136/47; PULSE 68; RESP 18; TEMP 97.7; O2SAT 94
[2023-09-17 09:55] VITALS: O2SAT 94
[2023-09-17 09:59] VITALS: BP 134/49; PULSE 62; RESP 18; TEMP 97.7; O2SAT 95
[2023-09-17] MEDS: GABAPENTIN 300 MG CAP PO ONE (10:20)
[2023-09-17] MEDS: ACETAMINOPHEN EXTRA STRENGTH 500 MG TAB PO ONE (10:37)
[2023-09-17] MEDS ORDERED: GABA300C PO (11:21)
[2023-09-17] MEDS ORDERED: ACET-10509 PO (11:21)
== END 2023-09-17 11:33 | disposition home or self-care (01) ==
LOC: MED 09:15
DX: E11.42 Type 2 diabetes mellitus with diabetic polyneuropathy (principal); I11.9 Hypertensive heart disease without heart failure; Z88.0 Allergy status to penicillin; Z79.4 Long term (current) use of insulin; Z79.899 Other long term (current) drug therapy
CPT/HCPCS: 82948; 99283

== ENCOUNTER 2023-10-21 06:57 | Emergency (ER) | payer MEDICARE, OTHER ==
[~2023-10-21] VITALS: Ht 177.8 cm; Wt 82.6 kg
[2023-10-21 07:20] VITALS: BP 134/48; PULSE 61; RESP 18; TEMP 98.2; O2SAT 97
[2023-10-21] MEDS ORDERED: BACTO TP (07:51)
[2023-10-21 08:37] VITALS: BP 134/48; PULSE 61; RESP 18; TEMP 98.2; O2SAT 97
== END 2023-10-21 08:32 | disposition home or self-care (01) ==
LOC: MED 06:57
DX: L01.00 Impetigo, unspecified (principal); E11.9 Type 2 diabetes mellitus without complications; I10 Essential (primary) hypertension; I25.10 Atherosclerotic heart disease of native coronary artery without angina pectoris; Z79.82 Long term (current) use of aspirin; Z79.1 Long term (current) use of non-steroidal anti-inflammatories (NSAID); Z79.2 Long term (current) use of antibiotics; Z79.84 Long term (current) use of oral hypoglycemic drugs; Z79.4 Long term (current) use of insulin; Z79.899 Other long term (current) drug therapy; Z88.0 Allergy status to penicillin; Z88.8 Allergy status to other drugs, medicaments and biological substances
CPT/HCPCS: 99283

== ENCOUNTER 2024-01-14 07:54 | Emergency (ER) | payer MEDICARE, OTHER ==
[~2024-01-14] VITALS: Ht 168.3 cm; Wt 79.4 kg
[~2024-01-14 07:54] MED LIST changes: -ACET-10509 PO; +ACET500T99 PO; +BACTO TP
[2024-01-14 07:57] VITALS: BP 100/58; PULSE 54; RESP 18; TEMP 97.3; O2SAT 95
[2024-01-14] MEDS: ACETAMINOPHEN EXTRA STRENGTH 500 MG TAB PO ONE (08:47)
[2024-01-14] MEDS ORDERED: DICL20GE TP (10:13)
[2024-01-14] MEDS ORDERED: IBUP-2218 PO (10:13)
== END 2024-01-14 10:15 | disposition home or self-care (01) ==
LOC: MED 07:54
DX: S70.02XA Contusion of left hip, initial encounter (principal); S80.212A Abrasion, left knee, initial encounter; I25.10 Atherosclerotic heart disease of native coronary artery without angina pectoris; E11.9 Type 2 diabetes mellitus without complications; I10 Essential (primary) hypertension; E78.5 Hyperlipidemia, unspecified; Z79.899 Other long term (current) drug therapy; Z79.82 Long term (current) use of aspirin; Z79.4 Long term (current) use of insulin; Z88.0 Allergy status to penicillin; Z88.7 Allergy status to serum and vaccine; W06.XXXA Fall from bed, initial encounter; Y93.89 Activity, other specified; Y92.89 Other specified places as the place of occurrence of the external cause; Y99.8 Other external cause status
CPT/HCPCS: 73502; 73562; 99284